=== PATIENT | male | born 2005 | race Caucasian/White ===

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

== ENCOUNTER → 2023-02-24 14:57 | Outpatient (CLI) | payer OTHER, SELFPAY ==
--- NOTE | ~2023-02-24 | MR_ITS ---
EXAMINATION: MR shoulder RT wo con DATE: 02/24/2023 15:47 INDICATION: Right shoulder pain. TECHNIQUE: Magnetic resonance imaging (MRI) of the right shoulder was performed without intravenous c ontrast. Sequences included axial PD-weighted FS FSE, coronal oblique PD-weighted FS FSE and T2-weigh sav FS FSE, and sagittal oblique T2-weighted FS FSE and T1-weighted FSE. COMPARISON: None. FINDINGS: Coracoacromial arch: The acromion undersurface is curved in morphology (type II). There is a fracture of the superior corn er of the articular surface of distal clavicle with 2 mm distraction. There is acromioclavicular join t effusion. There is mild subacromial/subdeltoid bursitis. Rotator cuff: Supraspinatus, infraspinatus, teres minor, and subscapularis tendons are normal. The rotator cuff mus harriet bellies are normal. Biceps tendon and glenoid labrum: Biceps tendon is in bicipital intra-articular biceps tendon is normal. The glenoid labrum. Fluid: There is a small glenohumeral joint effusion. Bones/cartilage: Glenoid cartilage is normal. Humeral head cartilage is normal. IMPRESSION: 1. Fracture of superior corner of distal articular surface of the clavicle. Reviewed, dictated and finalized at location E. [facility] [employer]
== END ==
DX: S42.031A Displaced fracture of lateral end of right clavicle, initial encounter for closed fracture (principal); X58.XXXA Exposure to other specified factors, initial encounter
CPT/HCPCS: 73221